=== PATIENT | male | born 1980 | race African-American/Black ===

== ENCOUNTER 2016-10-03 21:00 | Inpatient (IN) | payer OTHER ==
--- NOTE | ~2016-10-03 | PN ---
Unit #: [id number] #: [id number] Patient: MARKELL MARTINEZ [id number] [facility] [address] [place] [address] [id number] I MR#: [id number] NAME: MARKELL MARTINEZ ROOM: P214 Age: 36 Sex: M Admission Date: 10/03/2016 : 1980 Attending Physician: Radha Dukes M.D. Admitting Physician: Chelsey Dudley PROGRESS NOTES DATE OF SERVICE: 10/09/2016 SUBJECTIVE Mr. Martinez is a 36-year-old male who was seen today and chart was reviewed and case was discussed with the staff. He has been anxious, withdrawn, and rather seclusive to himself. Meanwhile, he has been cooperative with treatment recommendations and has been taking the medications and tolerating them fairly well with no reported side effects. MENTAL STATUS EXAMINATION Young male who was casually dressed with fair personal hygiene, appears to be in no acute distress or discomfort. He was awake and alert on interaction with intact orientation. His mood was anxious with a congruent affect. He denies any suicidal or homicidal ideations and also denies any auditory or visual hallucinations. His insight and judgment remain slightly impaired. TREATMENT PLAN 1. We will continue him on his current medications and treatment protocol. We will monitor his response to the medications and make further adjustments as needed. 2. We will continue to follow up. Dictated by... Chelsey Dudley/chazl TD: 10/11/2016 00:55 JOB #: [id number] [facility] PROGRESS NOTES Page 1 of 1 X Radha Dukes MD PROGRESS NOTE
--- NOTE | ~2016-10-03 | PN ---
Unit #: [id number] #: [id number] Patient: MARKELL WAGONER [id number] [facility] [address] [place] [address] [id number] I MR#: [id number] NAME: MARKELL WAGONER ROOM: P214 Age: 36 Sex: M Admission Date: 10/03/2016 : 1980 Attending Physician: Radha Dukes M.D. Admitting Physician: Radha Dukes M.D. Primary Care Physician: Primary Care Physician Katie AVALOS PROGRESS NOTES DATE OF SERVICE: 10/07/2016 SUBJECTIVE Mr. Wagoner is a 36-year-old male who was seen today and chart was reviewed and case was discussed with the staff. He has been anxious, withdrawn, and rather seclusive to himself. Meanwhile, he has been cooperative with treatment recommendations and has been taking the medications and tolerating them fairly well with no reported side effects. MENTAL STATUS EXAMINATION Young male who was casually dressed with fair personal hygiene, appears to be in no acute distress or discomfort. He was awake and alert with impaired attention and concentration. His mood was anxious and depressed with a congruent affect. His speech was slow and restricted in content. He reports having suicidal ideations, but denies any homicidal ideations. His insight and judgment remain slightly impaired. TREATMENT PLAN 1. We will continue him on his current treatment protocol. We will monitor his response to the medications and make further adjustments as needed. 2. We will continue to follow up. Dictated by... Chelsey Dudley/francisco javier TD: 10/08/2016 00:39 JOB #: [id number] [facility] PROGRESS NOTES Page 1 of 1 X Radha Dukes MD X PROGRESS NOTE
--- NOTE | ~2016-10-03 | PN ---
Unit #: [id number] #: [id number] Patient: MARKELL WAGONER [id number] [facility] [address] [place] [address] [id number] I MR#: [id number] NAME: MARKELL WAGONER ROOM: P214 Age: 36 Sex: M Admission Date: 10/03/2016 : 1980 Attending Physician: Radha Dukes M.D. Admitting Physician: Radha Dukes M.D. Primary Care Physician: Primary Care Physician Katie AVALOS PROGRESS NOTES DATE OF SERVICE: 10/08/2016 SUBJECTIVE Mr. Wagoner is a 36-year-old male who was seen today and chart was reviewed, and case was discussed with the staff. He has been anxious, withdrawn, and rather seclusive to himself. Meanwhile, he has been cooperative with treatment recommendations and has been taking the medications and tolerating them fairly well with no reported side effects. MENTAL STATUS EXAMINATION Young male who was casually dressed with fair personal hygiene, appears to be in no acute distress or discomfort. He was awake and alert with intact orientation. His mood was anxious and depressed with a congruent affect. He reports having suicidal ideation, but denies any homicidal ideations. His insight and judgment remain slightly impaired. TREATMENT PLAN 1. We will continue him on his current treatment protocol. We will monitor his response to the medications and make further adjustments as needed. 2. We will continue to follow up. Dictated by... Chelsey Dudley/chazl TD: 10/09/2016 18:41 JOB #: [id number] [facility] PROGRESS NOTES Page 1 of 1 X Radha Dukes MD PROGRESS NOTE
--- NOTE | ~2016-10-03 | DS ---
Unit #: [id number] #: [id number] Patient: MAR[facility]AGONER [id number] [facility] [address] [place] [address] [id number] I MR#: [id number] NAME: MARKELL WAGONER ROOM: P214 Age: 36 Sex: M Admission Date: 10/03/2016 : 1980 Discharge Date: 10/10/2016 Attending Physician: Radha Dukes M.D. Primary Care Physician: Primary Care Physician No DISCHARGE SUMMARY IDENTIFYING DATA Mr. Wagoner is a 36-year-old, single, male who is a resident of [place], [place], and was transferred to us from [facility] Emergency Room on a voluntary basis. DISCHARGE DIAGNOSES Psychiatric: Bipolar disorder, most recent episode depressed, recurrent, moderate, without psychotic features; cocaine dependence, moderate. Medical: None. Stressors: Moderate psychosocial stressors. HISTORY OF PRESENT ILLNESS Please see initial psychiatric evaluation for details. PAST PSYCHIATRIC HISTORY Please see initial psychiatric evaluation for details. PAST MEDICAL HISTORY Please see initial psychiatric evaluation for details. HOSPITAL COURSE The patient was admitted to the adult chemical dependency and psychiatric unit at [facility] and was oriented to the hospital environment. Routine p.r.n. medications were initiated, and he was started back on his home medications. Risperdal was initiated as a mood stabilizer and Paxil was started to help with depression and he was complaining of persistent depressive symptoms and as such, medications were adjusted further and Paxil was increased to 30 mg a day with good tolerability and therapeutic response. Followed by which, it was decided that the patient will be discharged home and will continue treatment on an outpatient basis. The patient was denying any suicidal ideations, intent, or plan and was not seen to be a danger to self or anyone else, and was not meeting criteria for further inpatient psychiatric hospitalizations. DISCHARGE MEDICATIONS Risperdal 0.5 mg b.i.d. for bipolar and Paxil 30 mg a day for depression. DISCHARGE CONDITION Stable. PROGNOSIS Fair. Unit #: [id number] #: [id number] Patient: MARKELL WAGONER Dictated by... Radha Dukes M.D. IAA/modl TD: 10/10/2016 18:53 JOB #: [id number] DISCHARGE SUMMARY Page 1 of 1 X Radha Dukes MD DISCHARGE SUMMARY
--- NOTE | ~2016-10-03 | PN ---
Unit #: [id number] #: [id number] Patient: MARKELL WAGONER [id number] [facility] [address] [place] [address] [id number] I MR#: [id number] NAME: MARKELL WAGONER ROOM: P214 Age: 36 Sex: M Admission Date: 10/03/2016 : 1980 Attending Physician: Radha Dukes M.D. Admitting Physician: Radha Dukes M.D. Primary Care Physician: Primary Care Physician Katie AVALOS PROGRESS NOTES DATE 10/06/2016 DISCUSSION Mr. Wagoner is a 36-year-old, male who was seen today and chart was reviewed and case was discussed with the staff. He has been anxious, withdrawn, depressed and seclusive to himself with minimal interaction. Meanwhile, he has been cooperative with treatment recommendations and has been taking medications and tolerating them fairly well with no reported side effects. MENTAL STATUS EXAM Young male who was casually dressed with fair personal hygiene, appears to be in no acute distress or discomfort. He was awake and alert on interaction with intact orientation. His mood was anxious with congruent affect. He denies any suicidal or homicidal ideation. His insight and judgement remains slightly impaired. TREATMENT PLAN 1. We will continue him on his current treatment protocol. We will monitor his response to the medication and make further adjustments as needed. 2. We will continue to follow up. Dictated by... Chelsey Dudley/lauren TD: 10/09/2016 01:57 JOB #: [id number] Unit #: [id number] #: [id number] Patient: MARKELL WAGONER PROGRESS NOTES Page 1 of 1 X Radha Dukes MD PROGRESS NOTE
--- NOTE | ~2016-10-03 | PN ---
Unit #: [id number] #: [id number] Patient: MARKELL WAGONER [id number] [facility] [address] [place] [address] [id number] I MR#: [id number] NAME: MARKELL WAGONER ROOM: P214 Age: 36 Sex: M Admission Date: 10/03/2016 : 1980 Attending Physician: Radha Dukes M.D. Admitting Physician: Radha Dukes M.D. Primary Care Physician: Primary Care Physician Katie AVALOS PROGRESS NOTES DATE OF SERVICE: 10/05/2016 SUBJECTIVE Mr. Wagoner is a 36-year-old male, who was seen today and chart was reviewed and case was discussed with the staff. He has been anxious, withdrawn, and rather seclusive to himself. Meanwhile, he has been cooperative with treatment recommendations and has been taking the medications and tolerating them fairly well. MENTAL STATUS EXAMINATION Young male who was casually dressed with fair personal hygiene, appears to be in no acute distress or discomfort. He was awake and alert on interaction with intact orientation. His mood was anxious with a congruent affect. He denies any suicidal or homicidal ideation. His insight and judgment remain slightly impaired. TREATMENT PLAN 1. We will continue on his current treatment protocol. We will monitor his response to the medications and make further adjustments as needed. 2. We will continue follow up. Dictated by... Chelsey Dudley/chazl TD: 10/06/2016 06:12 JOB #: [id number] [facility] PROGRESS NOTES Page 1 of 1 X Radha Dukes MD PROGRESS NOTE
--- NOTE | ~2016-10-03 | PA ---
Unit #: [id number] #: [id number] Patient: MARKELL WAGONER [id number] [facility] [address] [place] [address] [id number] I MR#: [id number] NAME: MARKELL WAGONER ROOM: P214 Age: 36 Sex: M Admission Date: 10/03/2016 : 1980 Date of Assessment: 10/04/2016 Attending Physician: Radha Dukes M.D. Admitting Physician: Radha Dukes M.D. Primary Care Physician: Primary Care Physician No PSYCHIATRIC ASSESSMENT DATE OF SERVICE 10/04/2016. IDENTIFYING DATA Mr. Wagoner is a 36-year-old single male, who is a resident of [place], [place], and was transferred to from [facility] Emergency Room on a voluntary basis. CHIEF COMPLAINT "I was going to jump off the [address] [place] before coming to the hospital." HISTORY OF PRESENT ILLNESS Mr. Wagoner is a 36-year-old male, who presented to the hospital emergency room reporting increasing depression and plan of [place] the [address] [place]. He reports increasing depression due to loss of a friend in 2011 and having recent nightmares that the friend is telling him that it is his fault that she , and the patient also reports homicidal ideation, but then refused to provide additional information stating "if I did that, then you will report it, and I won't be able to act." He denies any hallucinations and was seen to be showing increasing depression, anger, agitation, irritability, suicidal and homicidal ideation, was seen to be danger to self and others and as such, recommendation for inpatient level of care for safety and stabilization was made, and the patient was transferred to us. SUBSTANCE ABUSE HISTORY The patient reports history of alcohol and crack cocaine abuse and reports that he has been using crack and cocaine daily with an unknown amount, and using the amount that he can obtain and snorts it and smokes it on daily basis and reports previous legal charges regard to substance abuse. PAST PSYCHIATRIC HISTORY The patient has a history of inpatient psychiatric hospitalization at [facility] well as [facility] along with outpatient treatment, but currently is not taking any treatment program, is not seeing a psychiatrist, and is not taking any psychotropic medications. PAST MEDICAL HISTORY No acute or chronic medical illnesses. ALLERGIES Unit #: [id number] #: [id number] Patient: MARKELL WAGONER No known medication allergies. PERSONAL AND SOCIAL HISTORY A 36-year-old male, who reports that he is single, unemployed, and essentially homeless and has poor social support system. MENTAL STATUS EXAMINATION Young male, who was casually dressed with fair personal hygiene, appears to be in no acute distress or discomfort. He was awake and alert on interaction with intact orientation to time, place, and person. His mood was anxious and depressed with a congruent affect. His speech was slow and restricted in content. His thought processes were disorganized with some looseness of associations and flight of ideas and suicidal and homicidal ideations. His insight and judgment remain significantly impaired. DIAGNOSTIC IMPRESSION Psychiatric: Bipolar disorder, most recent episode depressed, recurrent, moderate, without psychotic features; cocaine dependence, moderate. Medical: None. Stressors: Moderate psychosocial stressors. TREATMENT PLAN 1. The patient has presented with history of substance abuse and mood disorder and has been decompensating and will need inpatient hospitalization for safety and stabilization. We will start him back on his home medications. We will adjust medications and monitor response. 2. Supportive therapy was provided to the patient. ESTIMATED LENGTH OF STAY 5 to 7 days. ABILITY TO HELP SELF Limited. WILLINGNESS TO HELP SELF The patient appears to be willing to help self. STRENGTHS 1. Communicative. 2. Cooperative. PROBLEMS 1. Chronic dysphoric symptoms. 2. Chronic chemical dependency. 3. Poor social support system. DISCHARGE CRITERIA This will be contingent upon the patient's ability to show resolution of his depression and anxiety and his ability to stay safe to himself as well as others, particularly after discharge from the hospital. Dictated by... Radha Dukes M.D. DAVID/francisco javier Unit #: [id number] #: [id number] Patient: MARKELL WAGONER TD: 10/04/2016 07:50 JOB #: [id number] PSYCHIATRIC ASSESSMENT Page 1 of 1 X Radha Dukes MD X PSYCHIATRIC ASSESSMENT
--- NOTE | ~2016-10-03 | HP ---
Unit #: [id number] #: [id number] Patient: FRANCISCO WAGONER [id number] [place] [address] [id number] I MR#: [id number] NAME: FRANCISCO WAGONER ROOM: P214 Age: 36 Sex: M Admission Date: 10/03/2016 : 1980 Attending Physician: Radha Dukes M.D. Admitting Physician: Radha Dukes M.D. Primary Care Physician: Primary Care Physician No HISTORY AND PHYSICAL HISTORY OF PRESENT ILLNESS Francisco is a 36 year old admitted to [address] [place] [address] with depression and verbalizing wanting to hurt himself. PAST MEDICAL HISTORY Nothing significant. PAST SURGICAL HISTORY Nothing reported. ALLERGIES No known drug allergies. SOCIAL HISTORY He does not smoke. Drinks alcohol rarely. Denies illicit drug use. FAMILY HISTORY Medically noncontributory. REVIEW OF SYSTEMS CONSTITUTIONAL: No fever or chills. HEENT: Denies any sore throat, ear pain or runny nose. CARDIOVASCULAR: Denies chest pain, irregular heart rhythm or palpitations. CHEST: Denies shortness of breath or cough. No hemoptysis. GASTROINTESTINAL: Denies nausea, vomiting, diarrhea or chronic constipation. ENDOCRINE: Denies history of increased thirst or urination. No recent significant weight loss or gain. GENITOURINARY: Denies dysuria, frequency, or hematuria. SKIN: Denies any rashes. HEMATOLOGIC: Denies history of increased bleeding or bruising. MUSCULOSKELETAL: Denies any hot, swollen joints. No generalized muscle pain. NEUROLOGIC: Denies problems with vision or speech. No frequent, severe headaches. No numbness, tingling or weakness in any extremities. Denies loss of bladder or bowel control. CURRENT MEDICATIONS 1. Paxil 20 mg daily. 2. Risperdal 0.5 mg b.i.d. 3. Milk of Magnesia p.r.n. 4. Maalox p.r.n. 5. Tylenol p.r.n. Unit #: [id number] #: [id number] Patient: FRANCISCO WAGONER PHYSICAL EXAMINATION GENERAL: Alert, well-nourished, in no apparent distress. VITAL SIGNS: Blood pressure 142/80, heart rate 80, respirations 16, temperature 98.6. WEIGHT: 220. HEIGHT: 6 feet 2 inches. SKIN: Warm and dry without rash or lesion. HEENT: Normocephalic. TMs not viewed. Oral and nasal passages clear. Conjunctivae clear. PERRLA. EOMs intact. NECK: Supple without lymphadenopathy or thyromegaly. HEART: Regular rate and rhythm without murmur. LUNGS: Clear. ABDOMEN: Soft, nontender. : Not done. EXTREMITIES: No evidence of cyanosis, clubbing or edema. Moves all without focal deficit. NEUROLOGICAL: Grossly within normal limits. Cranial Nerves: II: Visual enrique are intact. III, IV AND : Extraocular movements are intact. Pupils are equal, round and reactive to light. V: Facial sensation is grossly normal. VII: Facial movements and expression are normal. VIII: Auditory acuity grossly intact. IX, X: Uvula is midline. Phonation is normal. XI: Patient shrugs shoulders and turns head normally. XII: Tongue protrudes in the midline. Sensory and Motor Function: Sensory and motor sensation is grossly normal. Motor: moves all extremities well. Coordination: Gait is normal. Deep Tendon Reflexes: Intact. IMPRESSION Psychiatric admission. RECOMMENDATIONS PSYCHIATRIC: Per psychiatrist. MEDICAL: See no contraindication to participate in facility's activities. MEDICAL PROGNOSIS Good. MEDICAL CONDITION Stable. Dictated by... Adarsh BotelloAStan. for Chelsey Spangler/donald TD: 10/04/2016 20:55 JOB #: [id number] Unit #: [id number] #: [id number] Patient: FRANCISCO WAGONER HISTORY AND PHYSICAL Page 1 of 1 X Kaylen Moore HISTORY AND PHYSICAL
[2016-10-06 12:58] LABS: URINE APPEARANCE CLOUDY; URINE BILIRUBIN NEG (NEG); URINE BLOOD TRACE (NEG); URINE COLOR YELLOW; URINE GLUCOSE NEG (NEG); URINE KETONE NEG (NEG); URINE LEUKOCYTE ESTERASE 3+ (NEG); URINE NITRATE NEG (NEG); URINE PROTEIN NEG (NEG); URINE SPECIFIC GRAVITY 1.022 (1.003-1.035)
[2016-10-06 13:05] LABS: U HYALINE CASTS AUWI 0-2 /[LPF]; URINE BACTERIA AUWI NEG (NEGATIVE); URINE SQUAMOUS EPITHELIAL CELL NONE SEEN /[HPF]; UWBCS1 AUWI 200-300 (0-5)
[2016-10-06 13:36] LABS: AMPHETAMINE NEG (NEG); BARBITURATES NEG (NEG); BENZODIAZEPINES NEG (NEG); COCAINE POS (NEG); MARIJUANA NEG (NEG); OPIATES NEG (NEG); TRICYCLIC ANTIDEPRESSANTS NEG (NEG); U METHADONE NEG (NEG)
== END 2016-10-10 10:50 | disposition home or self-care (01) | DRG 885 ==
LOC: P2S 21:00
PROVIDERS: Psychiatry & Neurology Psychiatry
DX: F31.32 Bipolar disorder, current episode depressed, moderate (principal); F14.20 Cocaine dependence, uncomplicated
CPT/HCPCS: 80307; 81003